=== PATIENT | female | born 2000 | race Caucasian/White ===

== ENCOUNTER → 2019-11-01 | Outpatient (CLI) | payer OTHER ==
--- NOTE | 2019-11-02 11:24 | REP ---
Clinical: Anatomical evaluation. Comparison: None . Findings: Examination demonstrates a single live intrauterine in variable presentation. motion is identified by technologist. Placenta is noted posterior and grade zero without evidence for placenta previa or abruption. Amniotic fluid volume is normal. Cervix measures 4.2 cm in length and appears closed. No evidence for nuchal cord. Gestational age by LMP 14 weeks 5 day with MEI 04/26/2020 . Gestational age by current measurements 16 weeks 0 days with MEI 04/17/2020 . FHR equals 162 beats per minute. Estimated weight 141 grams ( 43rd percentile based on age by current measurements ). Anatomical assessment demonstrates normal structures including cranium, choroid plexus, facial features, lungs, diaphragm, stomach, cord insertion/three-vessel cord, kidneys/bladder, and extremities. Impression: 1. Single live early intrauterine with biometrical measurements at the 16 weeks 0 days gestational age. Complete anatomical assessment should be performed at 19-20 weeks. Electronically Signed by Jon Sun MD 11/02/2019 05:46 A
== END ==
LOC: M RAD 14:06
PROVIDERS: ATTEND Obstetrics & Gynecology
DX: Z36.87 Encounter for antenatal screening for uncertain dates (principal); Z3A.16 16 weeks gestation of pregnancy

== ENCOUNTER 2019-11-04 23:28 | Emergency (ER) | payer OTHER ==
[~2019-11-04] VITALS: Ht 165.1 cm; Wt 53.0 kg
[2019-11-04] MEDS ORDERED: PREN1TAB11 PO (23:35)
[2019-11-05] MEDS ORDERED: NORCO, ANEXSIA 5/325MG TABLET (HYDROcodone/ACETAMINOPHEN) PO ONE
--- NOTE | 2019-11-05 00:47 | REPVR ---
PROCEDURE INFORMATION: Exam: US , Limited Exam date and time: 11/05/2019 12:14 AM Age: 19 years old Clinical indication: Other: Pelvic pain generalized; Gestational age or lmp: 16w 4d; ; Additional info: Cramping p injury/15 weeks TECHNIQUE: Imaging protocol: Real-time ultrasound of the maternal uterus with image documentation. Exam focused on the clinical indication. COMPARISON: US OBS SINGEL GEST 11/01/2019 2:35 PM FINDINGS: GESTATION: Gestation: Single viable intrauterine gestation. Heart rate: heart rate is 153 beats per minute. Placenta: Posterior placenta. MATERNAL: Cervix: Cervical length is 3.4 cm. IMPRESSION: Single viable intrauterine gestation. Posterior placenta without evidence of abruption. Electronically signed by: Nathan Carr On 11/05/2019 00:46:54 AM
[2019-11-05 01:14] LABS: BASO % 0.3 % (0.0-1.0); EOS % 0.2 % (0.0-3.0); HEMATOCRIT 37.3 % (36.0-47.0); HEMOGLOBIN 12.6 g/dl (12.0-15.5); LYMPH % 18.5 % (24.0-44.0); MEAN CORPUSCULAR HEMOGLOBIN 29.9 pg (27.0-33.0); MEAN CORPUSCULAR HGB CONC 33.8 g/dl (32.0-36.5); MEAN CORPUSCULAR VOLUME 88.6 fl (80.0-96.0); MONO # 0.6 10^3/uL (0.0-0.8); MONO % 5.2 % (0.0-5.0); NEUTROPHILS % 75.3 % (36.0-66.0); PLATELET COUNT, AUTOMATED 246 10^3/uL (150-450); RED BLOOD COUNT 4.21 10^6/uL (4.00-5.40); WHITE BLOOD COUNT 10.6 10^3/uL (4.0-10.0)
[2019-11-05] MEDS ORDERED: CEPH500C PO (02:32)
[2019-11-05] MEDS ORDERED: ONDA4TAB6 PO (02:32)
[2019-11-05] MEDS ORDERED: CEPHALEXIN 500 MG CAP PO ONE (02:45)
[2019-11-05 03:06] VITALS: BP 107/61
== END 2019-11-05 02:54 | disposition home or self-care (01) ==
LOC: M ED 23:28
DX: O23.12 Infections of bladder in pregnancy, second trimester (principal); O9A.212 Injury, poisoning and certain other consequences of external causes complicating pregnancy, second trimester; X58.XXXA Exposure to other specified factors, initial encounter; Y92.9 Unspecified place or not applicable; Y93.9 Activity, unspecified; Y99.9 Unspecified external cause status; Z3A.15 15 weeks gestation of pregnancy; Z79.899 Other long term (current) drug therapy

== ENCOUNTER 2019-11-14 21:25 | Emergency (ER) | payer OTHER ==
[~2019-11-14] VITALS: Ht 165.1 cm; Wt 54.5 kg
[~2019-11-14 21:25] MED LIST: CEPH500C PO; ONDA4TAB6 PO; PREN1TAB11 PO
[2019-11-15 00:14] VITALS: BP 103/58
== END 2019-11-15 00:29 | disposition home or self-care (01) ==
LOC: M ED 21:25 → EDBD 21:25 → M ED 11-15 00:29
DX: O99.89 Other specified diseases and conditions complicating pregnancy, childbirth and the puerperium (principal); F41.8 Other specified anxiety disorders; Z79.899 Other long term (current) drug therapy

== ENCOUNTER 2019-11-20 23:39 | Emergency (ER) | payer OTHER ==
[~2019-11-20] VITALS: Ht 165.1 cm; Wt 52.6 kg
[2019-11-20 23:39] VITALS: BP 121/79
[2019-11-21] MEDS ORDERED: ONDA4TAB6 (12:52)
== END 2019-11-21 00:28 | disposition left against medical advice (07) ==
LOC: M ED 23:39
DX: Z53.21 Procedure and treatment not carried out due to patient leaving prior to being seen by health care provider (principal)

== ENCOUNTER 2019-11-21 12:42 | Emergency (ER) | payer OTHER ==
[~2019-11-21] VITALS: Ht 165.1 cm; Wt 53.1 kg
[2019-11-21] MEDS ORDERED: ONDA4TAB6 (12:52)
[2019-11-21 13:29] LABS: BASO % 0.4 % (0.0-1.0); EOS % 0.4 % (0.0-3.0); HEMATOCRIT 40.3 % (36.0-47.0); HEMOGLOBIN 13.8 g/dl (12.0-15.5); LYMPH # 2.4 10^3/uL (1.5-5.0); LYMPH % 23.4 % (24.0-44.0); MEAN CORPUSCULAR HGB CONC 34.2 g/dl (32.0-36.5); MEAN CORPUSCULAR VOLUME 90.6 fl (80.0-96.0); MONO # 0.5 10^3/uL (0.0-0.8); MONO % 4.5 % (0.0-5.0); NEUTROPHILS # 7.3 10^3/uL (1.5-8.5); NEUTROPHILS % 70.9 % (36.0-66.0); PLATELET COUNT, AUTOMATED 259 10^3/uL (150-450); RED BLOOD COUNT 4.45 10^6/uL (4.00-5.40); WHITE BLOOD COUNT 10.3 10^3/uL (4.0-10.0)
[2019-11-21 13:54] LABS: ALBUMIN 3.9 GM/DL (3.2-5.2); ALT/SGPT 21 U/L (12-78); BILIRUBIN,DIRECT 0.1 MG/DL (0.0-0.2); BILIRUBIN,TOTAL 0.4 MG/DL (0.2-1.0); BLOOD UREA NITROGEN 9 MG/DL (7-18); CALCIUM LEVEL 9.4 MG/DL (8.5-10.1); CARBON DIOXIDE LEVEL 24 MEQ/L (21-32); CHLORIDE LEVEL 104 MEQ/L (98-107); CREATININE FOR GFR 0.77 MG/DL (0.55-1.30); GLUCOSE, FASTING 71 MG/DL (70-100); LIPASE 212 U/L (73-393); POTASSIUM SERUM 3.5 MEQ/L (3.5-5.1); SODIUM LEVEL 136 MEQ/L (136-145)
[2019-11-21 15:33] LABS: HCG, SERUM QUALITATIVE POSITIVE (NEGATIVE)
[2019-11-21] MEDS ORDERED: ONDANSETRON 4MG/2ML VIAL (J2405) IV ONE (16:15)
[2019-11-21] MEDS ORDERED: NS 1,000 ML IV ONE (16:15)
--- NOTE | 2019-11-21 19:13 | REPVR ---
PROCEDURE INFORMATION: Exam: US , Limited Exam date and time: 11/21/2019 5:58 PM Age: 19 years old Clinical indication: complicated by abdominal or pelvic pain; Generalized abdominal pain; Second trimester; Gestational age or lmp: 18; ; Additional info: Lower abd pain, TECHNIQUE: Imaging protocol: Real-time ultrasound of the maternal uterus with image documentation. Exam focused on the clinical indication. COMPARISON: US OB 11/05/2019 12:14 AM FINDINGS: Last menstrual period: 07/12/2019 GESTATION: Gestation: There is a single intrauterine gestation. motion was visualized by the pulmonary function technologist. Heart rate: 153 bpm Presentation: The fetus is in transverse lie with the head in the maternal left position. Placenta: The location of the grade 0 placenta is posterior without evidence for placenta previa or abruption. Amniotic fluid: Subjectively, the amniotic fluid appears within normal limits. BIOMETRY: Estimated gestational age by LMP: 18 weeks 6 days Estimated due date by LMP: 04/17/2020 MATERNAL: Uterus: No myometrial mass is noted. Cervix: The cervix measures approximately 3.3 cm in length and is closed. Adnexa: The ovaries were not visualized. IMPRESSION: Single live intrauterine without evidence for placenta previa or placental abruption. Electronically signed by: Dillon Munoz On 11/21/2019 19:13:22 PM
[2019-11-21 19:30] VITALS: BP 108/58
== END 2019-11-21 19:44 | disposition home or self-care (01) ==
LOC: M ED 12:42
DX: O21.9 Vomiting of pregnancy, unspecified (principal); Z3A.18 18 weeks gestation of pregnancy; Z79.899 Other long term (current) drug therapy
CPT/HCPCS: 76815; 80048; 80076; 81001; 83690; 84703; 85025; 96374; 99285; J2405

== ENCOUNTER → 2020-02-06 | Outpatient (CLI) | payer OTHER ==
[~2020-02-06] MED LIST changes: +ONDA4TAB6
--- NOTE | 2020-02-07 16:17 | REP ---
Clinical: Growth evaluation. Comparison: 12/29/2019 . Findings: Examination demonstrates a single live intrauterine in cephalic presentation. motion is identified by technologist. Placenta is noted posterior and grade zero without evidence for placenta previa or abruption. Amniotic fluid volume is normal. Cervix measures 3.0 cm in length and appears closed. Nuchal cord noted. Gestational age by LMP 29 weeks 6 days with MEI 04/17/2020 . Gestational age by current measurements 28 weeks 6 days with MEI 04/24/2020 . FHR equals 134 beats per minute. BPD 7.6 cm 30 weeks 2 days HC 27.5 cm 30 weeks 0 days AC 23.4 cm 27 weeks 5 days FL 5.3 cm 28 weeks 1 day HL 4.8 cm 28 weeks 2 days HC/AC ratio 1.17 Estimated weight 1197 grams ( 8th percentile). Amniotic fluid index: 11.3 cm Umbilical cord SD ratio: 2.99 (2.50 - 3.50) MCA SD ratio 5.00 MCA PSV 21.0 cm/sec Impression: 1. Single live intrauterine in cephalic presentation. 2. Estimated weight at 8th percentile. 3. Nuchal cord noted. Electronically Signed by Jon Sun MD 02/07/2020 04:09 P
== END ==
LOC: M RAD 12:19
PROVIDERS: ATTEND Registered Nurse Maternal Newborn
DX: O36.5930 Maternal care for other known or suspected poor fetal growth, third trimester, not applicable or unspecified (principal); Z3A.30 30 weeks gestation of pregnancy

== ENCOUNTER 2020-02-13 22:11 | Outpatient (CLI) | payer OTHER ==
[~2020-02-13] VITALS: Ht 165.1 cm; Wt 56.6 kg
[2020-02-13 23:13] LABS: AMORPHOUS SEDIMENT MODERATE (NEGATIVE); APPEARANCE, URINE CLOUDY (CLEAR); BACTERIA, URINE AUTO NEGATIVE (NEGATIVE); BILIRUBIN, URINE AUTO NEGATIVE (NEGATIVE); BLOOD, URINE BLOOD NEGATIVE (NEGATIVE); COLOR, URINE YELLOW (YELLOW); GLUCOSE, URINE (UA) AUTO NEGATIVE (NEGATIVE); KETONE, URINE AUTO NEGATIVE (NEGATIVE); LEUKOCYTE ESTERASE, URINE AUTO NEGATIVE (NEGATIVE); MUCUS, URINE SMALL (NEGATIVE); NITRITE, URINE AUTO NEGATIVE (NEGATIVE); PROTEIN, URINE AUTO NEGATIVE (NEGATIVE); RBC, URINE AUTO 0 /HPF (0-3); SPECIFIC GRAVITY URINE AUTO 1.016 (1.002-1.035); SQUAMOUS EPITHELIAL CELL UR AU 10 /HPF (0-6); UROBILINOGEN, URINE AUTO 0.2 mg/dL (0.0-2.0); WBC, URINE AUTO 1 /HPF (0-3)
[2020-02-13] MEDS ORDERED: TERBUTALINE SULFATE 1 MG/ML VIAL (J3105) SC ONE (23:30)
[2020-02-13] MEDS ORDERED: BETAMETHASONE SOLUSPAN 6MG/ML 5ML VIAL (J0702 PER 3MG) IM SCH (23:30)
[2020-02-13] MEDS ORDERED: ONDANSETRON 4MG/2ML VIAL IV SCH (23:30)
[2020-02-13] MEDS ORDERED: LR 1,000 ML IV ONE ×2 (23:30)
--- NOTE | 2020-02-13 23:32 | IPNPDOC ---
Text Note Date of Service The patient was seen on 02/13/20. NOTE Patient is 19yo G 1 P0 at 31wks. C/o hematemesis x1 at 2100 and deep pelvic pain for past 2days. Thinks its [place] contractions. No loss of fluid or bleeding. Good movement. PE: VS WNL GEN NAD, Comfortable SVE: T/20/-3 FHT: Category 1, 130s, reactive, no decels. contractions [id number]. A/P: Fetus reassuring. Patient without rupture of membranes. Possible PTL vs contractions. Will give IVF, Betamethasone, and Terbutaline. Explained plan to patient. Then will monitor patient for 2hrs. Patient will be allowed to drink. If contractions cease and no cervical change then no further hematemesis then patient may go home. She will be on pelvic rest and Tums and need to follow up tomorrow for 2nd Betamethasone. Patient given labor precautions, rupture of membranes precautions and kick counts. Irais Bacon MD Feb 13, 2020 23:32
== END 2020-02-14 02:45 | disposition home or self-care (01) ==
LOC: M LDO 22:11
PROVIDERS: ATTEND Obstetrics & Gynecology
DX: O26.893 Other specified pregnancy related conditions, third trimester (principal); R10.9 Unspecified abdominal pain; O21.2 Late vomiting of pregnancy; O47.02 False labor before 37 completed weeks of gestation, second trimester; Z3A.31 31 weeks gestation of pregnancy
CPT/HCPCS: 59025; 81001; 96372; 96374; G0378; G0463; J0702; J2405; J3105

== ENCOUNTER 2020-02-14 21:59 | Outpatient (CLI) | payer OTHER ==
[2020-02-14] MEDS ORDERED: BETAMETHASONE SOLUSPAN 6MG/ML 5ML VIAL (J0702 PER 3MG) IM ONE (22:15)
--- NOTE | 2020-02-14 22:38 | IPNPDOC ---
Text Note Date of Service The patient was seen on 02/14/20. NOTE patient presented for second dose of betamethasone injection. Patient did not need to be evaluated by a provider. DO SHENA calderon LUAT N. Feb 14, 2020 22:38
== END 2020-02-14 22:30 | disposition home or self-care (01) ==
LOC: M LDO 21:59
PROVIDERS: ATTEND Obstetrics & Gynecology
DX: O26.893 Other specified pregnancy related conditions, third trimester (principal); Z3A.31 31 weeks gestation of pregnancy
CPT/HCPCS: 96372; G0378; J0702

== ENCOUNTER 2020-02-19 23:03 | Outpatient (CLI) | payer OTHER ==
[~2020-02-19] VITALS: Ht 162.6 cm; Wt 51.4 kg
[2020-02-20 00:21] LABS: APPEARANCE, URINE CLEAR (CLEAR); BACTERIA, URINE AUTO NEGATIVE (NEGATIVE); BILIRUBIN, URINE AUTO NEGATIVE (NEGATIVE); BLOOD, URINE BLOOD NEGATIVE (NEGATIVE); COLOR, URINE STRAW (YELLOW); GLUCOSE, URINE (UA) AUTO NEGATIVE (NEGATIVE); KETONE, URINE AUTO NEGATIVE (NEGATIVE); LEUKOCYTE ESTERASE, URINE AUTO NEGATIVE (NEGATIVE); NITRITE, URINE AUTO NEGATIVE (NEGATIVE); PROTEIN, URINE AUTO NEGATIVE (NEGATIVE); RBC, URINE AUTO 0 /HPF (0-3); SPECIFIC GRAVITY URINE AUTO 1.006 (1.002-1.035); SQUAMOUS EPITHELIAL CELL UR AU 2 /HPF (0-6); UROBILINOGEN, URINE AUTO 0.2 mg/dL (0.0-2.0); WBC, URINE AUTO 0 /HPF (0-3)
--- NOTE | 2020-02-20 01:40 | REPVR ---
PROCEDURE INFORMATION: Exam: US After First Trimester, Transabdominal Exam date and time: 02/20/2020 12:59 AM Age: 19 years old Clinical indication: Lmp or gestational age (in weeks): 31w2d; Antepartum complications; Other: labor, 8% on last ultrasound, cvx length; ; Additional info: 31w5d ctx, 8% 02/05, please perform growth and cvx length TECHNIQUE: Imaging protocol: Real-time transabdominal obstetrical ultrasound of the maternal pelvis and a second or third trimester with image documentation. COMPARISON: US OBS FOLL UP OR REPEAT EACH GES 02/06/2020 12:29 PM FINDINGS: Gestation: There is a single living intrauterine . motion was identified by the pet technologist. No nuchal cord is seen. Heart rate: 141 bpm Presentation: Vertex Placenta: The placenta is posterior, without evidence for placenta previa or abruption and is grade 1. Amniotic fluid: Within normal limits. The amniotic fluid index measures 12.4 cm. Cerebellum: Within normal limits. Cisterna magna: Within normal limits. Cerebral ventricles: Within normal limits. The lateral ventricle measures 6.5 mm. Upper lip and nose: Within normal limits. Heart four-chamber view, heart size and position: Not well evaluated due to position. Kidneys: Within normal limits. Stomach: Within normal limits. Bladder: Within normal limits. Umbilical cord vessel number: A three-vessel umbilical cord is noted. No nuchal cord is seen. Spine: Within normal limits. Arms and legs: Not well evaluated due to positioning. Gender: Female BIOMETRY: Estimated gestational age: 31 weeks 2 days Estimated due date: 04/21/2020 Estimated weight: 1628 g (3.59 lb), which is in the 21st percentile based on a gestational age of 31 weeks 6 days from the 1st ultrasound and 45th percentile based on a gestational age of 30 weeks 4 days based on the last menstrual period. Biparietal diameter: 8 cm; 32 weeks 1 day, which is in the 53rd percentile based on the gestational age of 31 weeks 6 days based on the 1st ultrasound. Head circumference: 28.8 cm; 31 weeks 4 days, which is in the 47th percentile based on the gestational age of 31 weeks 6 days based on the 1st ultrasound. Abdominal circumference: 25.5 cm; 29 weeks 5 days, which is in the 6th percentile based on the gestational age of 31 weeks 6 days based on the 1st ultrasound. Femur length: 6.1 cm; 31 weeks 5 days, which is in the 48th percentile based on the gestational age of 31 weeks 6 days based on the 1st ultrasound. Ratios: CI = 0.78 (0.70 - 0.86); FL/AC = 0.24 (0.20 - 0.24); FL/BPD = 0.76 (0.71 - 0.87); HC/AC = 1.13 (0.96 - 1.15) DOPPLER: Middle Cerebral artery Doppler: PSV = 25.2 cm/s; EDV = 8.3 cm/s; S/D = 3.04; RI = 0.67; Med PSV = 44.2 cm/s; MoM = 0.57 (<1.5) Umbilical artery Doppler: PSV = 46.1 cm/s; EDV = 14.2 cm/s; S/D = 3.25 (2.50 - 3.50); RI = 0.69 (0.59 - 0.75) MATERNAL: Uterus: Unremarkable. Cervix: The cervix measures 2.7 cm in length and is closed. Right adnexa: Ovary is obscured by overlying bowel gas. Left adnexa: Ovary is obscured by overlying bowel gas. IMPRESSION: 1. Single live intrauterine with a gestational age by ultrasound of 31 weeks 2 days and estimated due date on 04/21/2020 with appropriate signs of growth since the prior ultrasound on 02/06/2020. 2. Estimated weight of 1628 g (3.59 lb), which is in the 21st percentile based on a gestational age of 31 weeks 6 days from the 1st ultrasound and 45th percentile based on a gestational age of 30 weeks 4 days based on the last menstrual period. 3. Cervical length of 2.7 cm. Electronically signed by: Dillon Munoz On 02/20/2020 01:40:33 AM
--- NOTE | 2020-02-20 01:47 | IPNPDOC ---
Text Note Date of Service The patient was seen on 02/20/20. NOTE Triage Note Fara is a 19yo with SIUP at 31w5d presenting for CC of back pain and ? contractions with worsening of pain over a few hours. Notably, she was seen for similar complaint here in triage on 02/12, was seen to be christian and received beta on 02/12 and 02/13 but was not observed to be in PTL. Also, significantly, she had a growth scan on 02/05 that showed her baby was in the 8%ile and she has follow up u/s scheduled with [facility] on 28 February. She states tonight she has felt baby moving, no loss of fluid, no vaginal bleeding, just the pain. No abnormal vaginal discharge/itching, no odor, no irritation. No pain with urination. 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 Back pain may be related to muscle spasms rather than ctx. Reassuring growth ultrasound 40%ile today. SCE cl/50/-2 and cervical length 3cm. No vaginal sx. Urine has no e/o infection. Cat I FHRT. Vitals wnl, benign exam. Plan: -safe for discharge -discussed warm bath/shower, tylenol for back discomfort -continue good hydration -keep next routine OB appt 25 February in our office and PNC appt 28 February -return precautions discussed MD Mykel Pace Katrina D MD Feb 20, 2020 01:47
== END 2020-02-20 01:40 | disposition home or self-care (01) ==
LOC: M LDO 23:03
PROVIDERS: ATTEND Obstetrics & Gynecology
DX: O26.893 Other specified pregnancy related conditions, third trimester (principal); M54.9 Dorsalgia, unspecified; Z3A.31 31 weeks gestation of pregnancy
CPT/HCPCS: 59025; 76816; 76817; 76820; 81001; G0378; G0463

== ENCOUNTER → 2020-03-26 | Outpatient (CLI) | payer OTHER ==
[~2020-03-26] MED LIST changes: +D3 +TAB PO; +MAPA500T2 PO
--- NOTE | 2020-03-26 18:43 | REP ---
Clinical: well-being Comparison: 03/13/2020 . Findings: Examination demonstrates a single live intrauterine in cephalic presentation. motion is identified by technologist. Placenta is noted posterior - left and grade I without evidence for placenta previa or abruption. Amniotic fluid volume is normal. Cervix appears closed. Nuchal cord noted. Gestational age by LMP 35 weeks 4 days with MEI 04/26/2020 . Gestational age by current measurements 36 weeks 6 days with MEI 04/17/2020 . FHR equals 141 beats per minute. Biophysical profile score: 8/8 Amniotic fluid index: 10.6 cm Umbilical cord SD ratio: 2.23 Impression: Single live advanced gestation in cephalic presentation. Biophysical profile score and amniotic fluid volume are normal. Nuchal cord noted. Electronically Signed by Jon Sun MD 03/26/2020 06:35 P
== END ==
LOC: M RAD 15:23
PROVIDERS: ATTEND Obstetrics & Gynecology
DX: O36.5930 Maternal care for other known or suspected poor fetal growth, third trimester, not applicable or unspecified (principal); Z3A.35 35 weeks gestation of pregnancy

== ENCOUNTER → 2020-04-02 | Outpatient (CLI) | payer OTHER ==
[~2020-04-02] MED LIST changes: +DIBU10OI TOP; +DOCU100C16 PO; +IBUP80TA PO
--- NOTE | 2020-04-03 04:42 | REP ---
Clinical: Anatomical evaluation. Comparison: 03/13/2020 . Findings: Examination demonstrates a single live intrauterine in cephalic presentation. motion is identified by technologist. Placenta is noted posterior left and grade I I without evidence for placenta previa or abruption. Amniotic fluid volume is normal. Cervix appears closed. Nuchal cord noted. Gestational age by LMP 36 weeks 4 days with MEI 04/26/2020 . FHR equals 145 beats per minute. Biophysical profile score: 8/8 Amniotic fluid index: 10.5 cm Umbilical cord SD ratio: 2.12 Impression: Single live advanced gestation in cephalic presentation. Biophysical profile score and amniotic fluid volume are normal. Nuchal cord noted. Electronically Signed by Jon Sun MD 04/03/2020 04:34 A
== END ==
LOC: M RAD 15:22
PROVIDERS: ATTEND Obstetrics & Gynecology
DX: Z34.93 Encounter for supervision of normal pregnancy, unspecified, third trimester (principal); Z3A.36 36 weeks gestation of pregnancy

== ENCOUNTER 2020-04-03 07:51 | Inpatient (IN) | payer OTHER ==
[~2020-04-03] VITALS: Ht 165.1 cm; Wt 60.9 kg
[2020-04-03] VITALS (12 sets, daily range): BP systolic 115–131; BP diastolic 63–76
[~2020-04-03 07:51] MED LIST changes: -D3 +TAB PO; -DIBU10OI TOP; -DOCU100C16 PO; -IBUP80TA PO; -MAPA500T2 PO
[2020-04-03] MEDS ORDERED: D3 +TAB PO (08:32)
[2020-04-03] MEDS ORDERED: MAPA500T2 PO (08:32)
[2020-04-03] MEDS ORDERED: LACTATED RINGER'S 1000 ML IV STA (09:25)
[2020-04-03] MEDS ORDERED: LR 1,000 ML IV SCH (09:25)
[2020-04-03] MEDS ORDERED: miSOPROStol 25 MCG 1/4 TAB (S0191) PV ONE (09:30)
[2020-04-03 10:05] LABS: BASO # 0.1 10^3/uL (0.0-0.2); BASO % 0.4 % (0.0-1.0); EOS # 0.1 10^3/uL (0.0-0.5); EOS % 0.4 % (0.0-3.0); HEMATOCRIT 33.8 % (36.0-47.0); LYMPH # 2.3 10^3/uL (1.5-5.0); LYMPH % 19.9 % (24.0-44.0); MEAN CORPUSCULAR HEMOGLOBIN 31.9 pg (27.0-33.0); MEAN CORPUSCULAR HGB CONC 35.5 g/dl (32.0-36.5); MEAN CORPUSCULAR VOLUME 89.9 fl (80.0-96.0); MONO # 0.8 10^3/uL (0.0-0.8); MONO % 6.6 % (0.0-5.0); NEUTROPHILS # 8.4 10^3/uL (1.5-8.5); NEUTROPHILS % 71.8 % (36.0-66.0); PLATELET COUNT, AUTOMATED 168 10^3/uL (150-450); RED BLOOD COUNT 3.76 10^6/uL (4.00-5.40); WHITE BLOOD COUNT 11.7 10^3/uL (4.0-10.0)
[2020-04-03] MEDS: miSOPROStol 50 MCG 1/2 TAB (S0191) PO SCH ×2 (14:00→19:20)
[2020-04-03] MEDS ORDERED: miSOPROStol 25 MCG 1/4 TAB (S0191) PO ONE (17:15)
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
[2020-04-03] MEDS ORDERED: miSOPROStol 50 MCG 1/2 TAB (S0191) PO SCH (21:15)
[2020-04-04] VITALS (18 sets, daily range): BP systolic 102–123; BP diastolic 56–75
[2020-04-04] MEDS ORDERED: FENTANYL 2MCG/ML ROPIVACAINE 0.2% IN 0.9% NACL 100ML IVBAG As Ordered ONE (01:59)
[2020-04-04] MEDS ORDERED: ePHEDrine SULFATE 25 MG/5 ML(5MG/ML) SYRINGE IV PRN (04:00)
[2020-04-04] MEDS ORDERED: EPIDURAL COMMENT XX SCH (04:00)
[2020-04-04] MEDS ORDERED: LACTATED RINGER'S 1000 ML IV PRN (04:00)
[2020-04-04] MEDS ORDERED: REFRIGERATOR IV KEYS XX PRN (04:00)
[2020-04-04] MEDS ORDERED: EPIDURAL/PCA KEYS XX PRN (04:00)
[2020-04-04] MEDS ORDERED: diphenhydrAMINE 50MG/ML VIAL (J1200) IV PRN (04:00)
[2020-04-04] MEDS ORDERED: ONDANSETRON 4MG/2ML VIAL IV PRN (04:00)
[2020-04-04] MEDS ORDERED: NALOXONE INJ 0.4MG/1ML VIAL (J2310 PER 1MG) IV PRN (04:00)
[2020-04-04] MEDS ORDERED: FENTANYL/ROPIVACAINE/NACL BAG 100 ML EPIDURAL SCH (04:00)
[2020-04-04] MEDS ORDERED: ACETAMINOPHEN 500 MG TAB PO ONE (04:30)
[2020-04-04] MEDS ORDERED: OXYTOCIN 30 UNITS IN 0.9% NaCl 500ML IV BAG (J2590) As Ordered ONE (05:34)
[2020-04-04] MEDS ORDERED: LR 1,000 ML IV SCH (05:58)
[2020-04-04] MEDS ORDERED: OXYTOCIN DRIP 30 UNITS in IV 1 EA IV SCH (06:00)
[2020-04-04] MEDS ORDERED: MEASLES,MUMPS,RUBELLA VACCINE INJ (MMR-II) (90707) SC SCH (07:15)
[2020-04-04] MEDS ORDERED: OXYTOCIN INJ 10 UNITS/ML VIAL (J2590) IV ONE (07:15)
[2020-04-04] MEDS ORDERED: DIBUCAINE 1% OINTMENT 30GM TOP PRN (07:15)
[2020-04-04] MEDS ORDERED: ACETAMINOPHEN TAB 650MG DOSE (2X325MG) PO PRN (07:15)
[2020-04-04] MEDS ORDERED: MOM 30ML SUSPENSION UDC PO PRN (07:15)
[2020-04-04] MEDS ORDERED: RHOGAM 300 MCG (1500 IU) INJ (J2790) IM SCH (07:15)
[2020-04-04] MEDS ORDERED: OXYTOCIN DRIP 30 UNITS in IV 1 EA IV ONE (07:15)
[2020-04-04] MEDS ORDERED: IBUPROFEN 600 MG TAB PO PRN (07:15)
[2020-04-04] MEDS ORDERED: ANUSOL HC CREAM 30GM TOP PRN (07:15)
[2020-04-04] MEDS ORDERED: METHYLERGONOVINE MALEATE 0.2 MG TAB PO PRN (07:15)
[2020-04-04] MEDS ORDERED: DOCUSATE SODIUM 100 MG CAP PO PRN (07:15)
[2020-04-04 07:21] LABS: CORD GAS ABE V -8.4; CORD GAS HCO3 V 17.3 MEQ/L; CORD GAS PCO2 V 36.8 mmHg; CORD GAS PH V 7.29 UNITS; CORD GAS PO2 V 24.9 mmHg; CORD GAS SBC V 16.8 MEQ/L; CORD GAS TCO2 V 18.4 MEQ/L
[2020-04-04 07:23] LABS: CORD GAS ABE A -6.3; CORD GAS HCO3 A 22.4 MEQ/L; CORD GAS O2 SAT A 40.3 %; CORD GAS PCO2 A 55.9 mmHg; CORD GAS PH A 7.22 UNITS; CORD GAS PO2 A 20.8 mmHg; CORD GAS SBC A 17.9 MEQ/L; CORD GAS TCO2 A 24.1 MEQ/L
[2020-04-04] MEDS: PRENATAL VITAMINS CHEWABLE TABLET PO SCH (09:00)
[2020-04-04] MEDS: ACETAMINOPHEN 500 MG TAB PO PRN (12:58)
--- NOTE | 2020-04-04 16:20 | IPN ---
DATE: 04/04/2020 20-year-old, 1, admitted for induction of labor at 38 weeks because of an intrauterine growth restriction (IUGR). Her risk factors is she was CT positive test of cure negative, has posttraumatic stress disorder (PTSD). She had a Rey bulb induction, which the bulb fell out. She had Cytotec and was having regular contractions. She had a small leak at about 5-6 cm. On examination, she still 5-6 with bulging membranes. An artifical rupture of membranes (AROM) was done draining clear liquor. Moderate amount of fluid was noted. Baby in the occiput transverse (OT) position, not well applied to the cervix. She has a category 1 strip with moderate variability and good contractions. She complained of a headache and a stiff neck after her epidural and anesthesia is presently being consulted. We have ordered Tylenol 1000 mg for her headache and she will be evaluated by anesthesia regarding a questionable spinal headache. Presently safe to proceed.
[2020-04-05] MEDS: IBUPROFEN 800 MG TAB PO PRN ×2 (05:58→19:30)
[2020-04-05 06:33] VITALS: BP 115/70
[2020-04-05] MEDS: ACETAMINOPHEN 500 MG TAB PO PRN ×2 (06:43→22:59)
[2020-04-05 06:50] LABS: HEMATOCRIT 35.2 % (36.0-47.0); HEMOGLOBIN 12.3 g/dl (12.0-15.5); MEAN CORPUSCULAR HEMOGLOBIN 31.5 pg (27.0-33.0); MEAN CORPUSCULAR HGB CONC 34.9 g/dl (32.0-36.5); PLATELET COUNT, AUTOMATED 175 10^3/uL (150-450); RED BLOOD COUNT 3.91 10^6/uL (4.00-5.40); WHITE BLOOD COUNT 16.9 10^3/uL (4.0-10.0)
[2020-04-05] MEDS: PRENATAL VITAMINS CHEWABLE TABLET PO SCH (08:20)
--- NOTE | 2020-04-05 09:21 | IPNPDOC ---
Progress Note Date of Service: Apr 05, 2020 Day#: 1 Progress Note SUBJECT: patient is a 20 yo S/P after IOL for IUGR. Today without concerns. she is ambulating, urinating, tolerating po without problem. Attempting breast feeding. vitals: normal nad abd: nd, soft, nt, fundus @ u-2 le: no edema/erythema/tenderness a/p ppd #1, doing well. routine ppc. anticipate d/c home ppd #2. Le, DO VS, I&O, 24H, Fishbone Vital Signs/I&O Vital Signs Date Time Temp Pulse Resp B/P (MAP) Pulse Ox O2 Delivery O2 Flow Rate FiO2 04/05/20 06:33 98.3 63 18 115/70 (85) 04/04/20 12:57 96 Room Air I&O- Last 24 Hours up to 6 AM 04/05/20 06:00 Intake Total 935 ml Output Total 250 ml Balance 685 ml Laboratory Data 24H LABS Laboratory Tests 2 04/05/20 06:37: Nucleated Red Blood Cells % (auto) 0.0 CBC/BMP Laboratory Tests 04/05/20 06:37 KRISTYN CHATTERJEE DO Apr 05, 2020 09:20
[2020-04-05 18:03] VITALS: BP 109/53
[2020-04-06] MEDS: IBUPROFEN 800 MG TAB PO PRN ×2 (03:39→14:57)
[2020-04-06 06:00] VITALS: BP 111/59
[2020-04-06] MEDS ORDERED: IBUP80TA PO (07:08)
[2020-04-06] MEDS ORDERED: DIBU10OI TOP (07:08)
[2020-04-06] MEDS ORDERED: DOCU100C16 PO (07:08)
[2020-04-06] MEDS: ACETAMINOPHEN 500 MG TAB PO PRN ×2 (09:26→16:10)
[2020-04-06] MEDS: PRENATAL VITAMINS CHEWABLE TABLET PO SCH (09:26)
--- NOTE | 2020-04-06 17:44 | DN ---
DATE: 04/03/2020 This lady is a 20-year-old 1 who was admitted for induction of labor because of small for gestational age, query intrauterine growth restriction (IUGR. She had a Rey bulb with Cytotec followed up by spontaneous rupture of membranes, and she did have a bulging sac posteriorly with an artificial rupture of membranes (AROM) draining moderate amount of clear liquor. She eventually got fully dilated with 6 milliunits of Pitocin. Had a spontaneous vaginal delivery over an intact perineum of a live- male , weighing 4 pounds 15 ounces, 2250 grams, scores of 8 and 8 at one and five minutes, respectively. Arterial and venous pH were performed. The cord was around neck times three tight. Placenta had a suggestion of an abruptio placenta. Had three vessel. Membranes and tissues were intact. We did send the pathology off under separate cover. Again, gases are still pending. The uterus contracted well under Pitocin. The anterior, posterior, and lateral ngo and the sphincter were intact and tight. The patient and baby tolerated procedure well.
[2020-04-06 17:59] VITALS: BP 102/67
--- NOTE | 2020-04-08 21:28 | IPN ---
DATE: 04/04/2020 This patient requested circumcision of her male after discussing risks and benefits of circumcision, the medical, the nonmedical indications, the penile block and aftercare. Expressed understanding of penile block, aftercare and bleeding, signed the consent form. All questions were answered. 20-minute discussion. We await the clearance by the scientific programmer analyst.
== END 2020-04-06 18:10 | disposition home or self-care (01) | DRG 807 ==
LOC: M LDI 07:51 → M OBS 04-04 11:15
PROVIDERS: ADMIT Registered Nurse Maternal Newborn; ATTEND Registered Nurse Maternal Newborn
PROC: 10E0XZZ Delivery of Products of Conception, External Approach (ICD-10-PCS; principal; 2020-04-03)
PROC: 3E033VJ Introduction of Other Hormone into Peripheral Vein, Percutaneous Approach (ICD-10-PCS; 2020-04-03)
PROC: 10907ZC Drainage of Amniotic Fluid, Therapeutic from Products of Conception, Via Natural or Artificial Opening (ICD-10-PCS; 2020-04-03)
PROC: 3E0P7VZ Introduction of Hormone into Female Reproductive, Via Natural or Artificial Opening (ICD-10-PCS; 2020-04-03)
DX: O36.5930 Maternal care for other known or suspected poor fetal growth, third trimester, not applicable or unspecified (principal); Z37.0 Single live birth; Z3A.38 38 weeks gestation of pregnancy

== ENCOUNTER 2020-11-13 13:33 | Emergency (ER) | payer OTHER ==
[~2020-11-13] VITALS: Ht 165.1 cm; Wt 62.3 kg
[~2020-11-13 13:33] MED LIST changes: +D3 +TAB PO; +DIBU10OI TOP; +DOCU100C16 PO; +IBUP80TA PO; +MAPA500T2 PO
--- OUTSIDE RECORDS SUMMARY | 2020-11-13 13:39 | CCD ---
Author Author [facility] Organization [facility] Address Unknown Phone Unavailable Care Team Providers Care Sales Superintendent Name Role Phone DANNY CABELLO MD Unavailable [phone] DANNY CABELLO MD Unavailable [phone] DANNY CABELLO MD Unavailable [phone] DANNY CABELLO MD Unavailable [phone] DANNY CABELLO MD Unavailable [phone] DANNY CABELLO MD Unavailable [phone] DANNY CABELLO MD Unavailable [phone] DANNY CABELLO MD Unavailable [phone] DANNY CABELLO MD Unavailable [phone] DANNY CABELLO MD Unavailable [phone] DANNY CABELLO MD Unavailable [phone] DANNY CABELLO MD Unavailable [phone] DANNY CABELLO MD Unavailable [phone] DANNY CABELLO MD Unavailable [phone] DANNY CABELLO MD Unavailable [phone] DANNY CABELLO MD Unavailable [phone] DANNY CABELLO MD Unavailable [phone] DANNY CABELLO MD Unavailable [phone] BLACK, DANNY CHRISTOPHER MD Unavailable [phone] BLACK, DANNY ROLONER MD Unavailable [phone] BLACK, DANNY SIMENTAL MD Unavailable [phone] BLACK, DANNY ROLONER MD Unavailable [phone] BLACK, DANNY MURDOCKOPHER MD Unavailable [phone] BLACK, DANNY ROLONER MD Unavailable [phone] BLACK, DANNY SIMENTAL MD Unavailable [phone] BLACK, DANNY SIMENTAL MD Unavailable [phone] BLACK, DANNY SIMENTAL MD Unavailable [phone] BLACK, DANNY SIMENTAL MD Unavailable [phone] BLACK, DANNY SIMENTAL MD Unavailable [phone] BLACK, DANNY SIMENTAL MD Unavailable [phone] BLACK, DANNY SIMENTAL MD Unavailable [phone] BLACK, DANNY SIMENTAL MD Unavailable [phone] BLACK, DANNY SIMENTAL MD Unavailable [phone] BLACK, DANNY SIMENTAL MD Unavailable [phone] BLACK, DANNY SIMENTAL MD Unavailable [phone] BLACK, DANNY SIMENTAL MD Unavailable [phone] BLACK, DANNY SIMENTAL MD Unavailable [phone] BLACK, DANNY SIMENTAL MD Unavailable [phone] BLACK, DANNY SIMENTAL MD Unavailable [phone] BLACK, DANNY SIMENTAL MD Unavailable [phone] BLACK, DANNY SIMENTAL MD Unavailable [phone] BLACK, DANNY SIMENTAL MD Unavailable [phone] BLACK, DANNY SIMENTAL MD Unavailable [phone] BLACK, DANNY SIMENTAL MD Unavailable [phone] BLACK, DANNY SIMENTAL MD Unavailable [phone] BLACK, DANNY SIMENTAL MD Unavailable [phone] BLACK, DANNY SIMENTAL MD Unavailable [phone] BLACK, DANNY SIMENTAL MD Unavailable [phone] DANNY CABELLO MD Unavailable SALENA BREWER Unavailable Unavailable Luis GUARDADO MD Unavailable Unavailable Luis GUARDADO MD Unavailable Unavailable Luis GUARDADO MD Unavailable Unavailable Luis GUARDADO MD Unavailable Unavailable Luis GUARDADO MD Unavailable Unavailable Luis GUARDADO MD Unavailable Unavailable Luis GUARDADO MD Unavailable Unavailable Luis GUARDADO MD Unavailable Unavailable Luis GUARDADO MD Unavailable Unavailable Luis GUARDADO MD Unavailable Unavailable Luis GUARDADO MD Unavailable Unavailable Luis GUARDADO MD Unavailable Unavailable Luis GUARDADO MD Unavailable Unavailable Luis GUARDADO MD Unavailable Unavailable Luis GUARDADO MD Unavailable Unavailable Luis GUARDADO MD Unavailable Unavailable Luis GUARDADO MD Unavailable Unavailable Luis GUARDADO MD Unavailable Unavailable Luis GUARDADO MD Unavailable Unavailable Luis GUARDADO MD Unavailable Unavailable Luis GUARDADO MD Unavailable Unavailable Luis GUARDADO MD Unavailable Unavailable Luis GUARDADO MD Unavailable Unavailable Luis GUARDADO MD Unavailable Unavailable Luis GUARDADO MD Unavailable Unavailable Luis GUARDADO MD Unavailable Unavailable Luis GUARDADO MD Unavailable Unavailable Luis GUARDADO MD Unavailable Unavailable Luis GUARDADO MD Unavailable Unavailable Luis GUARDADO MD Unavailable Unavailable Luis GUARDADO MD Unavailable Unavailable Luis GUARDADO MD Unavailable Unavailable Luis GUARDADO MD Unavailable Unavailable Luis GUARDADO MD Unavailable Unavailable Luis GUARDADO MD Unavailable Unavailable Luis GUARDADO MD Unavailable Unavailable Luis GUARDADO MD Unavailable Unavailable Luis GUARDADO MD Unavailable Unavailable Luis GUARDADO MD Unavailable Unavailable Luis GUARDADO MD Unavailable Unavailable Luis GUARDADO MD Unavailable Unavailable Luis GUARDADO MD Unavailable Unavailable Luis GUARDADO MD Unavailable Unavailable Luis GUARDADO MD Unavailable Unavailable Luis GUARDADO MD Unavailable Unavailable Luis GUARDADO MD Unavailable Unavailable Luis GUARDADO MD Unavailable Unavailable Luis GUARDADO MD Unavailable Unavailable Luis GUARDADO MD Unavailable Unavailable Luis GUARDADO MD Unavailable Unavailable Luis GUARDADO MD Unavailable Unavailable Luis GUARDADO MD Unavailable Unavailable Luis GUARDADO MD Unavailable Unavailable Luis GUARDADO MD Unavailable Unavailable Matias JUARES Unavailable Unavailable KENDRA MORENO Unavailable Unavailable Re-disclosure Warning The records that you are about to access may contain information from federally-assisted alcohol or drug abuse programs. If such information is present, then the following federally mandated warning applies: This information has been disclosed to you from records protected by federal confidentiality rules (42 CFR part 2). The federal rules prohibit you from making any further disclosure of this information unless further disclosure is expressly permitted by the written consent of the person to whom it pertains or as otherwise permitted by 42 CFR part 2. A general authorization for the release of medical or other information is NOT sufficient for this purpose. The Federal rules restrict any use of the information to criminally investigate or prosecute any alcohol or drug abuse patient.The records that you are about to access may contain highly sensitive health information, the redisclosure of which is protected by Article 27-F of the [facility] Public Health law. If you continue you may have access to information: Regarding HIV / AIDS; Provided by facilities licensed or operated by the [facility] Office of Mental Health; or Provided by the [facility] Office for People With Developmental Disabilities. If such information is present, then the following [facility] mandated warning applies: This information has been disclosed to you from confidential records which are protected by state law. State law prohibits you from making any further disclosure of this information without the specific written consent of the person to whom it pertains, or as otherwise permitted by law. Any unauthorized further disclosure in violation of state law may result in a fine or fpc sentence or both. A general authorization for the release of medical or other information is NOT sufficient authorization for further disc losure. Allergies and Adverse Reactions Type Description Substance Reaction Status Data Source(s ) Drug Class NO KNOWN ALLERGIES NO KNOWN ALLERGIES [facility] Encounters Encounter Providers Location Date Indications Data Source(s ) Outpatient Attender: TAE GUARDADO MD [id number] 12:00:00 AM EDT [facility] Outpatient Attender: DAMARIS JUARES 03/19/2020 12:00: 00 AM EDT Maternal care for other known or suspected poor growth, third trimester, not applicable or unspecified [facility] Maternal care for other known or suspect ed poor growth, third trimester, not applicable or unspecified Outpatient Attender: TAE GUARDADO MD [id number] 12:00:00 AM EDT - 02/29/2020 11:35:[address] [facility] Outpatient Attender: SALENA BREWER 02/29/2020 12:0 0:00 AM EDT Maternal care for other known or suspected poor growth, third trimester, fetus 1 [facility] Maternal care for other known or suspect ed poor growth, third trimester, fetus 1 Outpatient Referrer: KENDRA MORENO 12/27/2019 11:18:0 0 AM EST [facility] Outpatient 12/27/2019 10:51:00 AM EST [facility] Outpatient 11/24/2019 03:42:00 PM [facility] Emergency Attender: HOLA CABELLO MD 1 12/08/2018 01:10:00 PM [facility] - 10/07/2019 02:54:00 PM [facility] Patient discharged. Medications Medication Brand Name Start Date Product Form Dose Route Admi nistrative Instructions Pharmacy Instructions Status Indications Reaction Description Data Source(s) Cholecalciferol 1000 UNT Oral Tablet Vit rivers D3 25 MCG (1000 UT) Oral Tablet (CHOLECALCIFEROL) Vitamin D3 25 MCG (1000 UT) Oral Tablet (CHOLECALCIFER OL) 01/22/2020 12:00:00 AM EDT [facility] Insurance Providers Payer name Policy type / Coverage type Policy ID Covered constitution party ID Covered constitution party's relationship to gonzalez Policy Gonzalez Plan Information [facility] ACTIVE DUTY [id number] SP [id number] [facility] [place] U [id number] Self [id number] [address] [facility] REG O [id number] S [id number] [facility] - O/P [id number] 18 [id number] Problems, Conditions, and Diagnoses Code Display Name Description Problem Type Effective Dates Data Source(s) O36.5930 Maternal care for other know n or suspected poor growth, third trimester, not applicable or unspecified Maternal care for other known or suspected poor growth, third trimester, not applicable or unspecified Diagnosis 02/29/2020 01:15:29 PM EDT [facility] O36.5931 Maternal care for other know n or suspected poor growth, third trimester, fetus 1 Maternal care for other known or suspect ed poor growth, third trimester, fetus 1 Diagnosis 02/29/2020 09:13:16 AM EDT [facility] Results ID Date Data Source [id number] 03/19/2020 11:19:00 AM EDT [facility] Name Value Range Interpretation Code Description Data Pati rce(s) Supporting Document(s) Progress Note [facility] [id number] lbm [file] o= ID Date Data Source [id number] 02/29/2020 01:17:32 PM EDT [facility] Name Value Range Interpretation Code Description Data Pati rce(s) Supporting Document(s) Progress Note [facility] [id number] lbm [file] [place]/[id number] [file] [id number]= ID Date Data Source [id number] 12/29/2019 12:00:00 AM EST [facility] Griselda Moreno Iftikhar Patient Name: BRAD PAL [facility] Date of : 2000[address] Date of Exam: 12/29/2019SRINIVASAN Daiz [id number]#: Fax: [phone] EXAM: ULTRASOUND BREAST UNI LIMITEDCLINICAL INFORMATION: 24 weeks , burning pain in the region ofthe right nipple with bloody nipple discharge.Realtime sonographic evaluation of the entire right breast is per formed.Mild diffuse ductal dilatation is seen. No discrete cystic or solid noduleis seen in any portion of the breast. No right axillary adenopathy isseen.IMPRESSION:BI-RADS Category 2 - Benign findings right breast. Mild ductal dilatationseen in the right breast. No discrete cystic or solid nodule. Given thehistory of blood nipple discharge, I would recommend consultation with abreast surgeon for consideration of post MRI of the breasts.DANIELLE Velazquez/Ti you for referring TRISTEN PAL to our office. Electronically Signed - EDWARD BOLTON MD 12/29/19 16:40 Name Value Range Interpretation Code Description Data Pati rce(s) Supporting Document(s) ID Date Data Source [id number] 10/07/2019 01:10:00 PM EST [facility] 1 OrderSheet [facility] Emergency Department [address] [place] [address] Phone #: ext- [phone] 10/07/2019 12:56 Patient: TRISTEN PAL Sex: F : 2000 Age: 19yWEIGHT:54.4 kg (S) HEIGHT:65 inches (S) BMI:20.0ALLERGIES: No Known Drug AllergyCHIEF COMPLAINT: sore throatDIAGNOSIS: SinusitisLAB ORDERSOrder Description Priority Entered Acknowledged InitialedRapid Strep Screen STAT 13:17 10/07/2019 13:23 Jeanette Vega RN P.A.-C;Influenza Nasal A B STAT 13:17 10/07/2019 13:23 Jeanette Vega RN P.A.- C;DIAGNOSTIC STUDY ORDERSOrder Description Priority Entered Acknowledged InitialedMEDICATION/IV/DRIP/FLUID ORDERSOrder Description Priority Entered Acknowledged InitialedTylenol 1 g PO X1 13:22 10/07/2019 Cancelled: Physician Order 13:37 Gary,dose: 1000 mg Hola Reid RN(NOW x1) P.A.- C;Tylenol MI 650 mg 13:37 10/07/2019 13:37 Jeanette Vega(NOW) Jeanette Vega RN; RN Verbal order per; Hola Rodriguez-CGENERAL ORDERSOrder Description Priority Entered Acknowledged Initialed[Electronically signed by Jeanette Vega RN (15:07 10/07/2019)][Electronically signed by Hola Self P.A.-C (20:16 10/07/2019)][Electronically locked by Jeanette Vega RN (15:07 10/07/2019)] Name Value Range Interpretation Code Description Data Pati rce(s) Supporting Document(s) ID Date Data Source [id number] 10/07/2019 01:10:00 PM EST [facility] 1 Medication Reconciliation Report [facility] Emergency Department [address] [place] [address] Phone #: ext- [phone] 10/07/2019 12:56 [id number] Sex[facility] : 2000 Age: 19yWeight: 54.4 kgHeight/Length: 65 in.BMI: 20.0ALLERGIES: No Known Drug AllergyThe patient's Home Medications are listed below:NONE.The source(s) of the original Home Medication information:Not obtained.The following Medications were given to the patient in the Emergency Department:Tylenol [MI] MI 650 mg, administered: 10/07/2019 1:37:00 PMThe following Medications were prescribed to the patient:Augmentin 875 mg-125 mg tablet Take 1 tablet twice a day for 7 days -- Dispense 14 tablet. Refills: 0.Substitution permitted.Pharmacy - [facility] [id number] ; [place] [address]. .Cepacol Sore Throat (benzocaine-menthol) 15 mg-2.6 mg lozenges Apply 1 lozenge every four hours for5 days -- Dispense 30 lozenge. Refills: 0. Substitution permitted. Note to Pharmacy - Pt is .Pharmacy - [facility] [id number] ; [place] [address]. . -- Hola Self P.A.-C Name Value Range Interpretation Code Description Data Pati rce(s) Supporting Document(s) ID Date Data Source [id number] 10/07/2019 01:10:00 PM EST [facility] 1 Medication Administration Record [facility] Emergency Department [address] [place] [address] Phone #: ext- [phone] 10/07/2019 12:56 Patient: TRISTEN PAL Sex: F : 2000 Age: 19yWeight: 54.4 kgHeight/Length: 65 inBMI: 20ALLERGIES: No Known Drug Allergy Date/Time Medication Administered Medication OrderedGiven TYLENOL [MI] Tylenol MI 650 mg (NOW)13:37 10/07/2019 Dose: 650 mg Supp/(MI) Jeanette White RN Name Value Range Interpretation Code Description Data Pati rce(s) Supporting Document(s) ID Date Data Source [id number] 10/07/2019 01:10:00 PM EST [facility] 1 General Instructions [facility] Emergency Department [address] [place] [address] Phone #: ext- [phone] 10/07/2019 12:56 Patient: TRISTEN PAL Sex: F : 2000 Age: 19yAcute maxillary and frontal sinusitis.INSTRUCTIONSTake Tylenol (Acetaminophen) or Motrin (Ibuprofen) as needed for fever control. Take medicationaccording to label instructions. No strenuous activity for one weeks. Remain at bedrest today andtomorrow.Drink plenty of fluids. No dietary restrictions.(Recommend to utilize OTC Tylenol to control inflammation and pain management. Recommend to followthe instructions on the bottle and not to exceed.).Warnings: GENERAL WARNINGS: Return or contact your physician immediately if your conditionworsens or changes unexpectedly, if not improving as expected, or if other problems arise.Prescription Medications:Augmentin 875 mg-125 mg tablet Take 1 tablet twice a day for 7 days -- Dispense 14 tablet. Refills: 0.Substitution permitted.Pharmacy - [facility] [address] ; [place] [address]. .Cepacol Sore Throat (benzocaine-menthol) 15 mg-2.6 mg lozenges Apply 1 lozenge every four hours for5 days -- Dispense 30 lozenge. Refills: 0. Substitution permitted. Note to Pharmacy - Pt is .Pharmacy - [facility] [address] ; [place] [address]. .Follow-up:Return to the emergency department as needed. Follow up with your healthcare provider in about twodays if not better. Call for an appointment.Understanding of the discharge instructions verbalized by patient. ADDITIONAL INFORMATIONSinusitis (Antibiotic Treatment) 2 General Instructions [facility] Emergency Department [address] [place] [address] Phone #: ext- [phone] 10/07/2019 12:56 Patient: TRISTEN PAL Sex: F : 2000 Age: 19yThe sinuses are air-filled spaces within the bones of the face. They connect to the inside of thenose. Sinusitis is an inflammation of the tissue that lines the sinuses. Sinusitis can occur during acold. It can also happen due to allergies to pollens and other particles in the air. Sinusitis can causesymptoms of sinus congestion and a feeling of fullness. A sinus infection causes fever, headache,and facial pain. There is often green or yellow fluid draining from the nose or into the back of thethroat (post-nasal drip). You have been given antibiotics to treat this condition.Home care Take the full course of antibiot ics as instructed. Do not stop taking them, even when you feel better. Drink plenty of water, hot tea, and other liquids. This may help thin nasal mucus. It also may help your sinuses drain fluids. Heat may help soothe painful areas of your face. Use a towel soaked in hot water. Or, printing worker supervisor the shower and direct the warm spray onto your face. Using a vaporizer along with a menthol rub at night may also help soothe symptoms. An expectorant with guaifenesin may help thin nasal mucus and help your sinuses drain fluids. You can use an yyac-fgy-vjldhfd decongestant, unless a similar medicine was prescribed to you. Nasal sprays work the fastest. Use one that contains phenylephrine or oxymetazoline. First blow your nose gently. Then use the spray. Do not use these medicines more often than directed on the label. If you do, your symptoms may get worse. You may also take pills that contain pseudoephedrine. Don't use products that combine multiple medicines. This is 3 General Instructions [facility] Emergency Department [address] [place] [address] Phone #: ext- [phone] 10/07/2019 12:56 [id number] Sex[facility] : 2000 Age: 19y because side effects may be increased. Read labels. You can also ask the pharmacist for help. (People with high blood pressure should not use decongestants. They can raise blood pressure.) Jkan-smq-wekbyng antihistamines may help if allergies contributed to your sinusitis. Do not use nasal rinses or irrigation during an acute sinus infection, unless your healthcare provider tells you to. Rinsing may spread the infection to other areas in your sinuses. Use acetaminophen or ibuprofen to control pain, unless another pain medicine was prescribed to you. If you have chronic liver or kidney disease or ever had a stomach ulcer, talk with your healthcare provider before using these medicines. (Aspirin should never be taken by anyone under age 18 who is ill with a fever. It may cause severe liver damage.) Don't smoke. This can make symptoms worse.Follow-up careFollow up with your healthcare provider or our staff if you are not better in 1 week.When to seek medical adviceCall your healthcare provider if any of these occur: Facial pain or headache that gets worse Stiff neck Unusual drowsiness or confusion Swelling of your forehead or eyelids Vision problems, such as blurred or double vision Fever of 100.4F (38C) or higher, or as directed by your healthcare provider Seizure Breathing problems Symptoms don't go away in 10 daysPreventionHere are steps you can take to help prevent an infection: Keep good hand washing habits. Don't have close contact with people who have sore throats, colds, or other upper respiratory 4 General Instructions [facility] Emergency Department [address] [place] [address] Phone #: [phone]- [phone] 10/07/2019 12:56 Patient: TRISTEN PAL Sex: F : 2000 Age: 19y infections. Don't smoke, and stay away from secondhand smoke. Stay up to date with of your vaccines. 0320-1063 [employer]. [address] [place] [address]. All rights reserved. This information is not intended as asubstitute for professional medical care. Always follow your healthcare professional's instructions. You have been given the following additional information: Sinusitis (Antibiotic Treatment) No strenuous activity for one weeks. Remain at bedrest today and tomorrow.(Electronically signed by Hola Self P.A.-C 10/07/2019 20:16) Name Value Range Interpretation Code Description Data Pati rce(s) Supporting Document(s) ID Date Data Source [id number] 10/07/2019 01:10:00 PM EST [facility] 1 Clinical Report - Nurses [facility] Emergency Department [address] [place] [address] Phone #: ext- [phone] 10/07/2019 12:56 Patient: TRISTEN PAL Sex: F : 2000 Age: 19yTRIAGEHistorian: patient.Triage time: 12:58 10/07/2019. Acuity: LEVEL 4.Chief Complaint: SORE THROAT.Alert. No acute distress.( pt c/o sore throat and swollen feeling for past 3 days, worse today. last dose tyl at 0830.).SEPSIS SCREEN: NEGATIVE. Infection suspected/documented. --13:00 10/07/19 Katerin January RJoaoN.12:58 10/07/19. BP: 120/72. MAP: 88. HR: 81. RR: 16. O2 saturation: 100%. Temp: 97.8 F. Pain levelnow: 5/10. --13:00 10/07/19 Katerin Ashleigh RJoaoN.Weight: 54. 4 kg stated. Height/Length: 65 inches Per Patient. BMI: 20. --12:56 10/07/19 Katerin January RDidi.MedicationsNone. --12:58 10/07/19 Cookie January RJoaoN.AllergiesNo Known Drug Allergy. --12:58 10/07/19 Katerin January RDidi.PROBLEMS:no known problems.ADDITIONAL SURGERIES:Appendectomy.Cholecystectomy. --12:58 10/07/19 Ashleigh Conklin, RJoaoN.HistoryPAST MEDICAL HX: Last normal menstrual period- Jun. 1. Para 0. Abortions 0.SOCIAL HX: Never smoker. No alcohol use or drug use. She was offered HIV testing but declined. Barbaras not traveled outside the [place]Infectious disease exposure: No infectious disease exposure. Patient is not a known carrier of tuberculosis,hepatitis, HIV, MRSA or VRE. Patient is not a known carrier of CRE.SELF HARM ASSESSMENT: Self harm assessment was performed. The patient answered "no" to thequestion(s) "Have you recently felt down, depressed, or hopeless?", "Do you have thoughts of harming orkilling yourself?", "Do you have a plan for harming or killing yourself?", "Have you recently had thoughtsabout harming or killing others?", "Do you have any dangerous items in your possession?", "Have younoticed less interest or pleasure in doing things?", "Are you here because you tried to hurt yourself?" and 2 Clinical Report - Nurses [facility] Emergency Department [address] [place] [address] Phone #: ext- [phone] 10/07/2019 12:56 Patient: TRISTEN PAL Sex: F : 2000 Age: 19y "Have you ever tried to hurt yourself before today?". ABUSE ASSESSMENT: Abuse assessment. yes. The patient had positive responses to the question(s) "Do you feel safe in your home?". No report of abuse. NUTRITIONAL RISK ASSESSMENT: The nutritional risk assessment revealed no deficiencies. FUNCTIONAL ASSESSMENT: Functional assessment: no impairments noted. LEARNING NEEDS ASSESSMENT: The learning needs assessment revealed no barriers. FALL RISK ASSESSMENT: Fall risk assessment completed. No risk factors identified. SKIN INTEGRITY ASSESSMENT: Skin integrity risk assessment completed. No skin integrity risk identified. --13:00 10/07/19 Ashleigh Conklin, R.N. Interventions To treatment room. --13:00 10/07/19 Ashleigh Conklin RJooaNJoaoPHYSICAL [id number] . Ambulatory to room.GENERAL / NEURO / PSYCH: Alert. Oriented X 4. Appears in no acute distress.HEENT: Sinus tenderness present. Pharyngeal erythema.RESPIRATORY: Respirations not labored. Chest nontender. Breath sounds within normal limits.CVS: Capillary refill less than 2 seconds. Pulses within normal limits.GI / : Abdomen soft and nontender and normal bowel sounds.SKIN: Skin intact. Skin is warm and dry. Normal skin turgor. --15:06 10/07/19 Jeanette Vega, RN.NURSING PROGRESS NOTESHead of bed elevated. Reassurance given. Bed placed in lowest position. Brakes of bed on. Patientready for evaluation- PA notified. --13:00 10/07/19 CookiealixAshleigh R.N. 13:37 10/07/2019 Tylenol MI Supp/(MI) 650 mg given. Allergies verified and confirmed 5 rights. Information reviewed with patient including reason for taking this medication. Verbalizes understanding. --13:37 10/07/19 Jeanette Vega, RN 13:52 10/07/19. BP: 119/78. MAP: 91. HR: 73. RR: 16. O2 saturation: 99%. --13:53 10/07/[address] [facility] Tech, [facility] Tech1 14:06 10/07/19. ( visiting with boyfriend, headache alittle better). --15:06 10/07/19 Jeanette Vega, MONALISA.DISPOSITION / DISCHARGE 14:46 10/07/19. BP: 118/76. MAP: 90. HR: 73. RR: 16. O2 saturation: 97%. Temp: 98.6 F. --14:46 10/07/19 Jeanette Vega, MONALISA 3 Clinical Report - Nurses [facility] Emergency Department [address] [place] [address] Phone #: ext- [phone] 10/07/2019 12:56 Patient: TRISTEN PAL Sex: F : 2000 Age: 19y Departure time: 14:53 10/07/2019. --14:53 10/07/19 Jeanette Vega, MONALISA Condition at departure: improved. No learning barriers present. Discharge instructions provided and reviewed with the patient. Reviewed medication(s) side effects, p recautions, dosing and course information. Prescription(s) sent electronically to pharmacy. Reviewed referral to a primary care physician. Work note given. Patient verbalized understanding. Written instructions provided in Croatian. The patient was discharged by the physician college sports assistant. She was discharged home and accompanied by geriatric personal care aide. She left ambulatory and via private vehicle. Storage Worker driving. --14:54 10/07/19 Jeanette Vega RN 14:53 10/07/19. Pain level now: 03/03. --14:54 10/07/19 Jeanette Vega RN.Locked/Released at 10/07/2019 15:07 by Jeanette Vega RN Name Value Range Interpretation Code Description Data Pati rce(s) Supporting Document(s) ID Date Data Source [id number] 0001 10/07/2019 01:10:00 PM EST [facility] 1 Clinical Report - Physicians/Mid Levels [facility] Emergency Department [address] [place] [address] Phone #: ext- [phone] 10/07/2019 12:56 Patient: TRISTEN PAL Sex: F : 2000 Age: 19y Time Seen: 14:16 10/07/2019; initial patient contact, initial documentation. Arrived- By private vehicle.HISTORY OF PRESENT ILLNESS Chief Complaint: SORE THROAT. This started about 3 days and is still present. Pain described as mild. The patient has had a sore throat and nasal congestion. No mouth sores, nasal discharge, ear pain or toothache. No swollen jaw or face, jaw pain or facial pain. (Pt sts that he has sore throat for the last few day and feels it is getting worse. Attempted to utilze OTC meds, but feels that it got more on tongue and made more numb. No CP, SOB, Dyspnea, or palps.). Similar symptoms previously. None. Recent medical care: Not recently seen/assessed.REVIEW OF SYSTEMSNo fever, eye discomfort, cough, difficulty breathing or chest pain. No nausea, diarrhea, abdominal pain,difficulty with urination or headache. No fainting episodes, joint pain, skin rash or vomiting. Currently.PAST HISTORYSee nurses notes. Problems: Muscle Strain, Upper Extremity. Shoulder Injury. Additional Surgeries: Appendectomy. Cholecystectomy. Medications: None. Allergies: No Known Drug Allergy.SOCIAL HISTORYNever smoker. No alcohol use or drug use.ADDITIONAL NOTES 2 Clinical Report - Physicians/Mid Levels [facility] Emergency Department [address] [place] [address] Phone #: ext- [phone] 10/07/2019 12:56 Patient: TRISTEN PAL Sex: F : 2000 Age: 19y The nursing notes have been reviewed.PHYSICAL EXAMVital Signs: 10/07/2019 12:58 BP: 120/72. MAP: 88. HR: 81. RR: 16. O2 saturation: 100%. Temp: 97.8 F.Pain level now: 03/03. Have been reviewed. Oxygen saturation normal.Appearance: Alert. No acute distress.ENT: Airway intact. Tenderness present to percussion/palpation of the sinuses: mild right and left frontaltenderness, maxillary tenderness. Nose normal. Nares normal. Nasal mucosal inflammation present(Inferior turbinates enlarged b/l). Uvula not deviated. Pharyngeal erythema. Moist mucous membranes.Uvula midline. Voice normal. No pharyngeal swelling or tonsillar exudate. Noted PND of postoropharynx.Ear (right): There is dullness of the tympanic membrane and abnormal insufflation. No tenderness of theauricle, pain with movement of the auricle, lymphadenopathy, erythema of the external canal or swelling ofthe external canal. No material in the external canal. Right ear normal. Normal mastoid. No hearingdeficit.Ear (left): There is dullness of the tympanic membrane, fluid behind the tympanic membrane and abnormalinsufflation. No tenderness of the auricle, pain with movement of the auricle, lymphadenopathy, erythemaof the external canal or swelling of the external canal. Left ear normal. Normal mastoid. No hearingdeficit.Neck: Normal inspection. Trachea midline. No adenopathy. Thyroid normal. Neck supple.CVS: Normal heart rate and rhythm. No JVD present. Pulses normal. Capillary refill normal. Strongperipheral pulses. Heart sounds normal. Pulses: right radial 2+; left radial 2+.Respiratory: Chest normal on inspection. No respiratory distress. Lungs clear. Good chest movement.Breath sounds normal and equal.Skin: Skin warm and dry.Neuro: Awake. Alert. Mood/affect normal. Speech normal. No motor deficit. No sensory deficit.Psych: Cognition normal. Thought process and content normal. Insight and judgement normal.LABS, X-RAYS, AND EKGLaboratory Tests: Rapid Strep Screen: (BRITTANY: 10/07/2019 13:20) ( [facility] 10/07/2019 13:51) Final results Test Result Flag Units (Reference) RAPID STREP NEGATIVE (NORMAL: NEGAT RAPID STREP REENTER NEGATIVE (NORMAL: NEGAT { PROCEDURAL CONTROL VALID ){ KIT LOT # [id number] ){ KIT EXP DATE 08/24/20 )The Strep A 2 assay utilizes isothermal nucleic acid amplification technology fothe qualitative detection of Group A Strep bacterial nucleic acid in throat swabspecimens.All negative test results no longer need to be confirmed with a culture. Follow-up testing requiring a culture is necessary if clinical symptoms persist, or inthe event of an acute rheumatic fever outbreak. A culture will need to beordered by the Qualified Medical Provider.Negative results do not preclude infection with Group A Strep and should not beused as the sole basis for treatment. Influenza Nasal A B: (BRITTANY: 10/07/2019 13:20) ( MsgRcvd 10/07/2019 13:50) Final results Test Result Flag Units (Reference) INFLUENZA A NEGATIVE (NORMAL: NEGAT INFLUENZA B NEGATIVE (NORMAL: NEGAT INFLUENZA A REENTER NEGATIVE (NORMAL: NEGAT INFLUENZA B REENTER NEGATIVE (NORMAL: NEGAT PROCEDURAL CONTROL VALID KIT LOT # _[id number] 10/07/19.1350.PB . KIT EXP DATE _06/05/20 3 Clinical Report - Physicians/Mid Levels [facility] Emergency Department [address] [place] [address] Phone #: ext- [phone] 10/07/2019 12:56 Patient: TRISTEN PAL Sex: F : 2000 Age: 19y 10/07/19.1350.PB .The Influenza A utilizing an isothermal nucleic acid amplification technology for thequalitative detection of influenza A and B viral RNA.Negative results do not preclude influenza virus infection and should not beused as the sole basis for diagnosis, treatment or other patient managementdecisions..PROGRESS AND PROCEDURESCourse of Care: VSS, NAD, AOx3, interacting well and appropriately, no use of accessory muscle, able tospeak full sentences, stable, non-toxic looking. Enter room and pt lying peacefully in bed in NAD. Patient stable. Denies any new issues, concerns, or complaints. CHRIS REILLY itcedt b/l UE. Pt is currently pregannt (no compalints) and sts that she ahd GARCIA and sore thorat. Will obtain labs for furhter eval. Pending restuls. Enter room and patient lying peacefully in bed in NAD. Patient stable. Denies any new issues, concerns, or complaints. Discussed results with pt. Discussed tx plan with pt. Discussed and counseled on stable condition. Discussed importance of a f/u with PCP. Discussed return to ER criteria. Answered their questions. Indicates and verbalizes that they understand, agree, and will comply with above. Denies any new questions or concerns. Patient has capacity to understand. Discharge decision based on the following: patient's condition is stable; patient's exam is stable; social support is adequate; transportation is available; follow-up is available. Discussed of OTC Motrin and Tylenol to control inflammation and pain management. Informed to follow directions on bottle that are appropriate for age and/or weight. Disposition: Discharged home in good and improved condition. Condition: good and stable.CLINICAL IMPRESSION Acute maxillary and frontal sinusitis.INSTRUCTIONS Take Tylenol (Acetaminophen) or Motrin (Ibuprofen) as needed for fever control. Take medication according to label instructions. No strenuous activity for one weeks. Remain at bedrest today and tomorrow. Drink plenty of fluids. No dietary restrictions. (Recommend to utilize OTC Tylenol to control inflammation and pain management. Recommend to follow 4 Clinical Report - Physicians/Mid Levels [facility] Emergency Department [address] [place] [address] Phone #: spb- [phone] 10/07/2019 12:56 Patient: TRISTEN PAL Sex: F : 2000 Age: 19y the instructions on the bottle and not to exceed.). Warnings: GENERAL WARNINGS: Return or contact your physician immediately if your condition worsens or changes unexpectedly, if not improving as expected, or if other problems arise. Prescription Medications: Augmentin 875 mg-125 mg tablet Take 1 tablet twice a day for 7 days -- Dispense 14 tablet. Refills: 0. Substitution permitted. Pharmacy - [facility] [phone] ; [place] [address]. . Cepacol Sore Throat (benzocaine-menthol) 15 mg-2.6 mg lozenges Apply 1 lozenge every four hours for 5 days -- Dispense 30 lozenge. Refills: 0. Substitution permitted. Note to Pharmacy - Pt is . Pharmacy - [facility] [phone] ; [place] [address]. . Follow-up: Return to the emergency department as needed. Follow up with your healthcare provider in about two days if not better. Call for an appointment. Understanding of the discharge instructions verbalized by patient.(Electronically signed by Hola Self P.A.-C 10/07/2019 20:16) Name Value Range Interpretation Code Description Data Pati rce(s) Supporting Document(s) ID Date Data Source [id number] 10/07/2019 01:50:00 PM EST [facility] Name Value Range Interpretation Code Description Data Pati rce(s) Supporting Document(s) RAPID STREP NEGATIVE NORMAL: NEGATIVE [facility] RAPID STREP REENTER NEGATIVE NORMAL: NEGATIVE [facility] { PROCEDURAL CONTROL VALID ){ KIT LOT # [id number] ){ KIT EXP DATE 08/24/20 )The Strep A 2 assay utilizes isothermal nucleic acid amplification technology fothe qualitative detection of Group A Strep bacterial nucleic acid in throat swabspecimens.All negative test results no longer need to be confirmed with a culture. Follow-up testing requiring a culture is necessary if clinical symptoms persist, or inthe event of an acute rheumatic fever outbreak. A culture will need to beordered by the Qualified Medical Provider.Negative results do not preclude infection with Group A Strep and should not beused as the sole basis for treatment. ID Date Data Source [id number] 10/07/2019 01:50:00 PM [facility] Name Value Range Interpretation Code Description Data [facility] rc(s) Supporting Document(s) Influenza virus A Ag [Presence] in Nasopharynx by [facility] y NEGATIVE NORMAL: NEGATIVE [facility] Influenza virus B Ag [Presence] in Nasopharynx by [facility] y NEGATIVE NORMAL: NEGATIVE [facility] NEGATIVENEGATIVE PROCEDURAL CO NTROL VALID KIT LOT # _[id number] 10/07/19.1350.PB . KIT EXP DATE _06/05/20 10/07/19.1350.PB .The Influenza A & B assay is a rapid molecular in vitro diagnostic testutilizing an isothermal nucleic acid amplification technology for thequalitative detection of influenza A and B viral RNA.Negative results do not preclude influenza virus infection and should not beused as the sole basis for diagnosis, treatment or other patient managementdecisions. Procedure Social History Code Duration Value Status Description Data Source(s ) Alcohol intake 03/19/2020 12:00:00 AM EDT Lifetime non-drinker (finding) completed Lifetime non-drinker (finding) [facility] Smoking 03/19/2020 12:00:00 AM EDT Never smoker completed Never s [facility] Alcohol intake 02/29/2020 12:00:00 AM EDT Lifetime non-drinker (finding) completed Lifetime non-drinker (finding) [facility] ital Smoking 02/29/2020 12:00:00 AM EDT Never smoker completed Never s [facility] Vital Signs ID Date Data Source [id number] 03/19/2020 11:19:00 AM [facility] Name Value Range Interpretation Code Description Data Source(s) WEIGHT RECORDED 131 lb 131 lb [facility] ID Date Data Source [id number] 02/29/2020 01:17:32 PM [facility] Name Value Range Interpretation Code Description Data Source(s) WEIGHT RECORDED 126.2 lb 126.2 lb [facility] Body height Measured 65 in 65 in [facility] Patient Treatment Plan of Care Planned Activity Planned Date Details Description Data Source (s) Cholecalciferol 1000 UNT Oral Tablet 01/22/2020 12:00:00 AM [facility]
[2020-11-13] MEDS ORDERED: FLUO10CA16 PO (13:43)
[2020-11-13 15:02] LABS: BASO % 0.5 % (0.0-1.0); EOS # 0.1 10^3/uL (0.0-0.5); EOS % 1.2 % (0.0-3.0); HEMATOCRIT 40.3 % (36.0-47.0); HEMOGLOBIN 13.7 g/dl (12.0-15.5); LYMPH # 2.5 10^3/uL (1.5-5.0); LYMPH % 30.2 % (24.0-44.0); MEAN CORPUSCULAR VOLUME 85.2 fl (80.0-96.0); MONO # 0.6 10^3/uL (0.0-0.8); MONO % 6.7 % (0.0-5.0); NEUTROPHILS # 5.1 10^3/uL (1.5-8.5); NEUTROPHILS % 61.2 % (36.0-66.0); PLATELET COUNT, AUTOMATED 270 10^3/uL (150-450); RED BLOOD COUNT 4.73 10^6/uL (4.00-5.40); WHITE BLOOD COUNT 8.3 10^3/uL (4.0-10.0)
--- OUTSIDE RECORDS SUMMARY | 2020-11-13 15:05 | CCD ---
Author Author [facility] Organization [facility] Address Unknown Phone Unavailable Care Team Providers Care Halal Butcher Name Role Phone DANNY CABELLO MD Unavailable [...] Unavailable [phone] DANNY CABELLO MD Unavailable [phone] SALENA BREWER Unavailable Unavailable Luis GUARDADO MD [...] is protected by Article 27-F of the [facility] Public Health law. If you continue you may have access to information: Regarding HIV / AIDS; Provided by facilities licensed or operated by the [facility] Office of Mental Health; or Provided by the [facility] Office for People With Developmental Disabilities. If such information is present, then the following [facility] mandated warning applies: This information has been [...] law may result in a fine or residential sentence or both. A general authorization for the release of medical or other information is NOT sufficient authorization for further disc losure. Allergies and Adverse Reactions Type Description Substance Reaction Status Data Source(s ) Drug Class NO KNOWN ALLERGIES NO KNOWN ALLERGIES [facility] Encounters Encounter Providers Location Date Indications Data Source(s ) Outpatient Attender: TAE GUARDADO MD [id number] 12:00:00 AM EDT [facility] Outpatient Attender: DAMARIS JUARES 03/19/2020 12:00: 00 AM EDT Maternal care for other known or suspected poor growth, third trimester, not applicable or unspecified [facility] Maternal care for other known or suspect ed poor growth, third trimester, not applicable or unspecified Outpatient Attender: TAE GUARDADO MD [id number] 12:00:00 AM EDT - 02/29/2020 11:35:54 AM EDT [facility] Outpatient Attender: SALENA BREWER 02/29/2020 12:0 0:00 AM EDT Maternal care for other known or suspected poor growth, third trimester, fetus 1 [facility] Maternal care for other known or suspect ed poor growth, third trimester, fetus 1 Outpatient Referrer: KEDNRA MORENO 12/27/2019 11:18:0 0 AM EST [facility] Outpatient 12/27/2019 10:51:00 AM EST [facility] Outpatient 11/24/2019 03:42:00 PM [facility] Rad[facility] Emergency Attender: OHLA CABELLO MD 1 12/08/2018 01:10:00 PM [facility] - 10/07/2019 02:54:[address] [facility] Patient discharged. Medications Medication Brand Name Start Date Product Form Dose Route Admi nistrative Instructions Pharmacy Instructions Status Indications Reaction Description Data Source(s) Cholecalciferol 1000 UNT Oral Tablet Vit rivers D3 25 MCG (1000 UT) Oral Tablet (CHOLECALCIFEROL) Vitamin D3 25 MCG (1000 UT) Oral Tablet (CHOLECALCIFER OL) 01/22/2020 12:00:00 AM EDT [facility] Insurance Providers Payer name Policy type / Coverage type Policy ID Covered libertarian ID Covered libertarian's relationship to gonzalez Policy Gonzalez Plan Information [facility] ACTIVE DUTY [id number] SP [id number] [facility] U [id number] Self [id number] [facility] O [id number] S [id number] [facility] - O/P [id number] 18 [id number] Problems, Conditions, and Diagnoses Code Display Name Description Problem Type Effective Dates Data Source(s) O36.5930 Maternal care for other know n or suspected poor growth, third trimester, not applicable or unspecified Maternal care for other known or suspected poor growth, third trimester, not applicable or unspecified Diagnosis 02/29/2020 01:15:29 PM EDT [facility] O36.5931 Maternal care for other know n or suspected poor growth, third trimester, fetus 1 Maternal care for other known or suspect ed poor growth, third trimester, fetus 1 Diagnosis 02/29/2020 09:13:16 AM EDT [facility] Results ID Date Data Source [id number] 03/19/2020 11:19:[address] [facility] Name Value Range Interpretation Code Description Data Pati rce(s) Supporting Document(s) Progress Note [facility] [id number] lbm [file] o= ID Date Data Source [id number] 02/29/2020 01:17:[address] [facility] Name Value Range Interpretation Code Description Data Pati rce(s) Supporting Document(s) Progress Note [facility] [id number] lbm [file] [id number] [file] [id number]= ID Date Data Source [id number] 12/29/2019 12:00:00 AM EST [facility] Griselda Moreno Iftikhar Patient Name: BRAD PAL [facility] Date of : 2000[address] Date of Exam: 12/29/2019SRINIVASAN Diaz [id number]#: Fax: [phone] EXAM: ULTRASOUND BREAST UNI LIMITEDCLINICAL [...] rce(s) Supporting Document(s) ID Date Data Source [id number] 10/07/2019 01:10:00 PM EST [facility] 1 OrderSheet [facility] Emergency Department [address] [place] [address] Phone #: ext- [phone] 10/07/2019 12:56 Patient: [...] rce(s) Supporting Document(s) ID Date Data Source [id number] 10/07/2019 01:10:00 PM EST [facility] 1 Medication Reconciliation Report [facility] Emergency Department [address] [place] [address] Phone #: ext- [phone] 10/07/2019 12:56 [id number] Sex[facility] : 2000 Age: 19yWeight: 54.4 [...] Dispense 14 tablet. Refills: 0.Substitution permitted.Pharmacy - [facility] [id number] ; [place] [address]. .Cepacol Sore Throat (benzocaine-menthol) 15 mg-2.6 mg lozenges Apply 1 lozenge every four hours for5 days -- Dispense 30 lozenge. Refills: 0. Substitution permitted. Note to Pharmacy - Pt is .Pharmacy - [facility] [phone] ; [place] [address]. . -- Hola Self P.A.-C Name Value Range Interpretation Code Description Data Pati rce(s) Supporting Document(s) ID Date Data Source [id number] 10/07/2019 01:10:00 PM EST [facility] 1 Medication Administration Record [facility] Emergency Department [address] [place] [address] Phone #: ext- [phone] 10/07/2019 12:56 Patient: TRISTEN PAL Sex: F : 2000 Age: 19yWeight: 54.4 kgHeight/Length: 65 inBMI: 20ALLERGIES: No Known Drug Allergy Date/Time Medication Administered Medication OrderedGiven TYLENOL [MI] Tylenol MI 650 mg (NOW)13:37 10/07/2019 Dose: 650 mg Supp/(MI) Jeanette White RN Name Value Range Interpretation Code Description Data Pati rce(s) Supporting Document(s) ID Date Data Source [id number] 10/07/2019 01:10:00 PM EST [facility] 1 General Instructions [facility] Emergency Department [address] [place] [address] Phone #: ext- [phone] 10/07/2019 12:56 Patient: [...] Dispense 14 tablet. Refills: 0.Substitution permitted.Pharmacy - [facility] [address] ; [place] [address]. .Cepacol Sore Throat (benzocaine-menthol) 15 mg-2.6 mg lozenges Apply 1 lozenge every four hours for5 days -- Dispense 30 lozenge. Refills: 0. Substitution permitted. Note to Pharmacy - Pt is .Pharmacy - [facility] [phone] ; [place] [address]. .Follow-up:Return to the emergency department as needed. Follow up with your healthcare provider in about twodays if not better. Call for an appointment.Understanding of the discharge instructions verbalized by patient. ADDITIONAL INFORMATIONSinusitis (Antibiotic Treatment) 2 General Instructions [facility] Emergency Department [address] [place] [address] Phone #: ext- [phone] 10/07/2019 12:56 Patient: [...] a towel soaked in hot water. Or, sharepoint application architect the shower and direct the warm spray onto your face. Using a vaporizer along with a menthol rub at night may also help soothe symptoms. An expectorant with guaifenesin may help thin nasal mucus and help your sinuses drain fluids. You can use an qdhk-scm-jsnnydw decongestant, unless a similar medicine was prescribed [...] multiple medicines. This is 3 General Instructions [facility] Emergency Department [address] [place] [address] Phone #: ext- [phone] 10/07/2019 12:56 [id number] Sex[facility] F : 2000 Age: 19y because side effects may be increased. Read labels. You can also ask the pharmacist for help. (People with high blood pressure should not use decongestants. They can raise blood pressure.) Zwes-orb-kzfidao antihistamines may help if allergies contributed to [...] or other upper respiratory 4 General Instructions [facility] Emergency Department [address] [place] [address] Phone #: rrd- [phone] 10/07/2019 12:56 Patient: TRISTEN PAL Sex: F : 2000 Age: 19y infections. Don't smoke, and stay away from secondhand smoke. Stay up to date with of your vaccines. [id number] [employer]. [address] [place] [address]. All rights reserved. This information is not [...] rce(s) Supporting Document(s) ID Date Data Source [id number] 10/07/2019 01:10:00 PM EST [facility] 1 Clinical Report - Nurses [facility] Emergency Department [address] [place] [address] Phone #: ext- [phone] 10/07/2019 12:56 Patient: [...] yourself?" and 2 Clinical Report - Nurses [facility] Emergency Department [address] [place] [address] Phone #: ext- [phone] 10/07/2019 12:56 Patient: [...] To treatment room. --13:00 10/07/19 Ashleigh Conklin RJoaoNJoaoPHYSICAL ELIXCRUKCD75:15 . Ambulatory to room.GENERAL / NEURO / [...] RR: 16. O2 saturation: 99%. --13:53 10/07/19 [facility] Tech, [facility] Tech1 14:06 10/07/19. ( visiting with boyfriend, headache alittle better). --15:06 10/07/19 Jeanette Vega, MONALISA.DISPOSITION / DISCHARGE 14:46 10/07/19. BP: 118/76. MAP: 90. HR: 73. RR: 16. O2 saturation: 97%. Temp: 98.6 F. --14:46 10/07/19 Jeanette Vega, MONALISA 3 Clinical Report - Nurses [facility] Emergency Department [address] [place] [address] Phone #: ext- [phone] 10/07/2019 12:56 Patient: TRISTEN PAL Sex: F [...] Patient verbalized understanding. Written instructions provided in Czech. The patient was discharged by the physician geriatric nursing assistant. She was discharged home and accompanied by area director of home health sales. She left ambulatory and via private vehicle. [employer] Specialist driving. --14:54 10/07/19 Jeanette Vega RN 14:53 10/07/19. Pain level now: 03/03. --14:54 10/07/19 Jeanette Vega RN.Locked/Released at 10/07/2019 15:07 by Jeanette Vega RN Name Value Range Interpretation Code Description Data Pati rce(s) Supporting Document(s) ID Date Data Source [id number] 10/07/2019 01:10:00 PM EST [facility] 1 Clinical Report - Physicians/Mid Levels [facility] Emergency Department [address] [place] [address] Phone #: ext- [phone] 10/07/2019 12:56 Patient: [...] NOTES 2 Clinical Report - Physicians/Mid Levels [facility] Emergency Department [address] [place] [address] Phone #: ext- [phone] 10/07/2019 12:56 Patient: TRISTEN PAL Sex: F [...] Rapid Strep Screen: (BRITTANY: 10/07/2019 13:20) ( [facility] 10/07/2019 13:51) Final results Test Result Flag Units (Reference) RAPID STREP NEGATIVE (NORMAL: NEGAT RAPID STREP REENTER NEGATIVE (NORMAL: NEGAT { PROCEDURAL CONTROL VALID ){ KIT LOT # [id number] ){ KIT EXP DATE 08/24/20 )The Strep [...] _06/05/20 3 Clinical Report - Physicians/Mid Levels [facility] Emergency Department [address] [place] [address] Phone #: ext- [phone] 10/07/2019 12:56 Patient: [...] follow 4 Clinical Report - Physicians/Mid Levels [facility] Emergency Department [address] [place] [address] Phone #: [phone]- [phone] 10/07/2019 12:56 Patient: TRISTEN PAL Sex: F [...] tablet. Refills: 0. Substitution permitted. Pharmacy - [facility] [address] ; [place] [address]. . Cepacol Sore Throat (benzocaine-menthol) 15 mg-2.6 mg lozenges Apply 1 lozenge every four hours for 5 days -- Dispense 30 lozenge. Refills: 0. Substitution permitted. Note to Pharmacy - Pt is . Pharmacy - [facility] [address] ; [place] [address]. . Follow-up: Return to the emergency department as needed. Follow up with your healthcare provider in about two days if not better. Call for an appointment. Understanding of the discharge instructions verbalized by patient.(Electronically signed by Hola Self P.A.-C 10/07/2019 20:16) Name Value Range Interpretation Code Description Data Pati rce(s) Supporting Document(s) ID Date Data Source [id number] 10/07/2019 01:50:00 PM EST [facility] Name Value Range Interpretation Code Description Data Pati rce(s) Supporting Document(s) RAPID STREP NEGATIVE NORMAL: NEGATIVE [facility] RAPID STREP REENTER NEGATIVE NORMAL: NEGATIVE [facility] { PROCEDURAL CONTROL VALID ){ KIT LOT # [id number] ){ KIT EXP DATE 08/24/20 )The Strep [...] basis for treatment. ID Date Data Source [id number] 10/07/2019 01:50:[address] [facility] Name Value Range Interpretation Code Description Data [facility] rc(s) Supporting Document(s) Influenza virus A Ag [Presence] in Nasopharynx by Immunoassa y NEGATIVE NORMAL: NEGATIVE [facility] Influenza virus B Ag [Presence] in Nasopharynx by Immunoassa y NEGATIVE NORMAL: NEGATIVE [facility] NEGATIVENEGATIVE PROCEDURAL CO NTROL VALID KIT LOT [...] Lifetime non-drinker (finding) completed Lifetime non-drinker (finding) [facility] ital Smoking 03/19/2020 12:00:00 AM EDT Never smoker completed Never s [facility] Alcohol intake 02/29/2020 12:00:00 AM EDT Lifetime non-drinker (finding) completed Lifetime non-drinker (finding) [facility] ital Smoking 02/29/2020 12:00:00 AM EDT Never smoker completed Never s [facility] Vital Signs ID Date Data Source [id number] 03/19/2020 11:19:[address] [facility] Name Value Range Interpretation Code Description Data Source(s) WEIGHT RECORDED 131 lb 131 lb [facility] ID Date Data Source [id number] 02/29/2020 01:17:[address] [facility] Name Value Range Interpretation Code Description Data Source(s) WEIGHT RECORDED 126.2 lb 126.2 lb [facility] Body height Measured 65 in 65 in [facility] Patient Treatment Plan of Care Planned Activity Planned Date Details Description Data Source (s) Cholecalciferol 1000 UNT Oral Tablet 01/22/2020 12:00:00 AM [facility]
[2020-11-13] MEDS ORDERED: NS 1,000 ML IV ONE (15:15)
[2020-11-13] MEDS ORDERED: ACETAMINOPHEN TAB 650MG DOSE (2X325MG) PO ONE (15:15)
[2020-11-13] MEDS ORDERED: ONDANSETRON 4MG/2ML VIAL IV ONE (15:15)
[2020-11-13] MEDS ORDERED: KETOROLAC 30 MG/ML 1ML VIAL IV ONE (15:15)
[2020-11-13 15:27] LABS: HCG, SERUM QUALITATIVE NEGATIVE (NEGATIVE)
[2020-11-13 15:30] LABS: ALBUMIN 3.9 GM/DL (3.2-5.2); ALT/SGPT 27 U/L (12-78); BILIRUBIN,TOTAL 0.5 MG/DL (0.2-1.0); BLOOD UREA NITROGEN 13 MG/DL (7-18); CALCIUM LEVEL 9.4 MG/DL (8.5-10.1); CARBON DIOXIDE LEVEL 29 MEQ/L (21-32); CHLORIDE LEVEL 106 MEQ/L (98-107); CREATININE FOR GFR 0.89 MG/DL (0.55-1.30); GLOMERULAR FILTRATION RATE > 60.0 (>60); GLUCOSE, FASTING 82 MG/DL (70-100); POTASSIUM SERUM 3.9 MEQ/L (3.5-5.1); SODIUM LEVEL 139 MEQ/L (136-145); TOTAL PROTEIN 7.8 GM/DL (6.4-8.2)
[2020-11-13] MEDS ORDERED: ONDA4TAB6 PO (16:00)
[2020-11-13] MEDS ORDERED: KETO10TAB PO (16:00)
[2020-11-13 16:11] VITALS: BP 110/68
== END 2020-11-13 16:14 | disposition home or self-care (01) ==
LOC: M ED 13:33
DX: G43.909 Migraine, unspecified, not intractable, without status migrainosus (principal); F41.9 Anxiety disorder, unspecified; F33.9 Major depressive disorder, recurrent, unspecified; Z79.899 Other long term (current) drug therapy
CPT/HCPCS: 80053; 81001; 84703; 85025; 87086; 96374; 96375; 99284; J1885; J2405

== ENCOUNTER 2021-03-24 03:15 | Emergency (ER) | payer OTHER ==
[~2021-03-24] VITALS: Ht 165.1 cm; Wt 66.2 kg
[~2021-03-24 03:15] MED LIST changes: -DIBU10OI TOP; +DIBU28OI2 TOP; +FLUO10CA16 PO; +KETO10TAB PO
[2021-03-24 04:04] LABS: BASO % 0.2 % (0.0-1.0); HEMATOCRIT 42.7 % (36.0-47.0); HEMOGLOBIN 14.4 g/dl (12.0-15.5); LYMPH # 0.4 10^3/uL (1.5-5.0); LYMPH % 2.8 % (24.0-44.0); MEAN CORPUSCULAR HGB CONC 33.7 g/dl (32.0-36.5); MEAN CORPUSCULAR VOLUME 86.1 fl (80.0-96.0); MONO # 0.4 10^3/uL (0.0-0.8); MONO % 2.8 % (2.0-8.0); NEUTROPHILS # 12.2 10^3/uL (1.5-8.5); NEUTROPHILS % 93.9 % (36.0-66.0); PLATELET COUNT, AUTOMATED 275 10^3/uL (150-450); RED BLOOD COUNT 4.96 10^6/uL (4.00-5.40)
[2021-03-24] MEDS ORDERED: NS 1,000 ML IV ONE (04:20)
[2021-03-24] MEDS ORDERED: ONDANSETRON 4MG/2ML VIAL IV ONE (04:20)
[2021-03-24] MEDS ORDERED: KETOROLAC 30 MG/ML 1ML VIAL IV ONE (04:20)
[2021-03-24 04:32] LABS: ALBUMIN 4.3 GM/DL (3.2-5.2); BILIRUBIN,DIRECT 0.2 MG/DL (0.0-0.2); BILIRUBIN,TOTAL 0.7 MG/DL (0.2-1.0)
[2021-03-24 06:30] VITALS: BP 113/57
[2021-03-24] MEDS ORDERED: ONDA4TAB6 PO (06:39)
== END 2021-03-24 06:45 | disposition home or self-care (01) ==
LOC: M ED 03:15
DX: R10.9 Unspecified abdominal pain (principal); T62.91XA Toxic effect of unspecified noxious substance eaten as food, accidental (unintentional), initial encounter; Y92.9 Unspecified place or not applicable; Y93.9 Activity, unspecified
CPT/HCPCS: 80047; 80076; 83690; 84702; 85025; 96361; 96374; 96375; 99284; J1885; J2405